=== PATIENT | female | born 1995 | race Caucasian/White ===

== ENCOUNTER 2018-11-17 07:57 | Outpatient (CLI) | payer OTHER ==
--- NOTE | 2018-11-17 09:30 | ULT ---
LIMITED RIGHT BREAST ULTRASOUND: DATE: 11/17/2018. PROVIDED CLINICAL HISTORY: Right breast pain. FINDINGS: Limited sonographic interrogation of the right breast was performed from the 6 to 9 to 12 o'clock pos itions in th region of patient pain. The sonographic appearance of the interrogated breast parenchym a is normal. IMPRESSION: No sonographic abnormality to explain the patient's breast pain. Negative imaging findings should no t preclude further evaluation of the clinically suspicious area. The patient is referred back to her clinician. POS: [facility]
== END 2018-11-17 07:58 | disposition home or self-care (01) ==
LOC: BICULT 07:57
PROVIDERS: ATTEND Nurse Practitioner Family
DX: N64.4 Mastodynia (principal)

== ENCOUNTER 2020-01-28 20:13 | Emergency (ER) | payer OTHER ==
[2020-01-28] MEDS ORDERED: diphenhydrAMINE 50 MG/ML VIAL ONE (20:34)
[2020-01-28] MEDS ORDERED: Metoclopramide HCl 10 MG/2 ML VIAL ONE (20:34)
[2020-01-28 20:44] LABS: #Basophils 0.1 thou/uL (0.0-0.2); #Eosinphils 0.2 thou/uL (0.0-0.7); #Lymphocytes 3.7 thou/uL (1.20-3.40); #Monocytes 0.5 thou/uL (0.11-0.59); #Neutrophils 5.4 thou/uL (1.40-6.50); %Basophils 0.8 % (0.0-1.0); %Eosinophils 1.7 % (0.0-10.0); %Lymphocytes 37.9 % (21.0-51.0); %Monocytes 4.6 % (0.0-10.0); Hemoglobin 15.7 g/dL (12.0-16.0); Mean Corpuscular HGB CONC 35.7 g/dL (32.0-36.0); Mean Corpuscular Hemoglobin 32.1 pg (27.0-31.0); Mean Corpuscular Volume 89.9 fL (78.0-98.0); Mean Platelet Volume 7.7 fL (7.4-10.4); Platelet Count 286 thou/uL (130-400); RBC Distribution Width 10.8 % (11.5-14.5); Red Blood Cell (RBC) Count 4.88 mill/uL (4.20-5.40); White Blood Cell (WBC) Count 9.8 thou/uL (4.8-10.8)
[2020-01-28 21:17] LABS: BHCG - Serum Negative (NEGATIVE); Pregs Control Background? CLEAR/WHITE (CLR/WHITE); Pregs Control Bar Appear? YES (CONTROL BAR)
[2020-01-28] MEDS ORDERED: Ketorolac Tromethamine 30 MG/ML VIAL ONE (21:23)
[2020-01-28] MEDS ORDERED: Magnesium 2 GM/50 ML BAG (IN WATER) ONE (21:23)
[2020-01-28 21:26] LABS: ALT (SGPT) 17 U/L (8-55); AST (SGOT) 22 U/L (5-34); Albumin 4.9 g/dL (3.5-5.0); Alkaline Phosphatase 65 U/L (40-110); Anion Gap 15 mmol/L (10-20); BUN (Urea Nitrogen) 14 mg/dL (7.0-18.7); Bilirubin, Total 0.3 mg/dL (0.2-1.2); Calc. Creatinine Clearance 0 mL/min (70-130); Carbon Dioxide 24 mmol/L (22-29); Chloride 104 mmol/L (98-107); Estimated GFR-MDRD 73; Globulin 3.1 g/dL (2.4-3.5); Glucose 90 mg/dL (70-105); Potassium 3.5 mmol/L (3.5-5.1); Sodium 139 mmol/L (136-145)
[2020-01-28] MEDS ORDERED: Valproate Sodium 500 MG in Sodium Chloride 0.9% 100 ML IVPB SCH (21:30)
[2020-01-29] MEDS ORDERED: Dexamethasone 10 MG/ML VIAL ONE (00:28)
== END 2020-01-29 01:12 | disposition home or self-care (01) ==
LOC: ERS 20:13
DX: G43.909 Migraine, unspecified, not intractable, without status migrainosus (principal)
CPT/HCPCS: 80053; 84703; 85025; 96365; 96367; 96375; J1100; J1200; J1885; J2765; J3475; J3490

== ENCOUNTER 2020-11-22 20:04 | Emergency (ER) | payer BC, OTHER ==
[2020-11-22 20:42] LABS: #Basophils 0.2 thou/uL (0.0-0.2); #Eosinphils 0.2 thou/uL (0.0-0.7); #Lymphocytes 4.2 thou/uL (1.20-3.40); #Monocytes 0.7 thou/uL (0.11-0.59); #Neutrophils 5.4 thou/uL (1.40-6.50); %Basophils 1.6 % (0.0-1.0); %Eosinophils 1.6 % (0.0-10.0); %Lymphocytes 39.6 % (21.0-51.0); %Monocytes 6.4 % (0.0-10.0); %Neutrophils 50.9 % (42.0-75.0); Hemoglobin 14.2 g/dL (12.0-16.0); Mean Corpuscular Hemoglobin 30.8 pg (27.0-31.0); Mean Corpuscular Volume 90.7 fL (78.0-98.0); Mean Platelet Volume 7.4 fL (7.4-10.4); Platelet Count 294 thou/uL (130-400); RBC Distribution Width 10.8 % (11.5-14.5); Red Blood Cell (RBC) Count 4.61 mill/uL (4.20-5.40); White Blood Cell (WBC) Count 10.6 thou/uL (4.8-10.8)
[2020-11-22] MEDS ORDERED: Naloxone HCl 2 MG, Admixture Fee 1 EACH in Sodium Chloride 0.9% 500 ML IV PRN (20:45)
[2020-11-22] MEDS ORDERED: Naloxone HCl 0.4 mg/ml Vial ONE (21:00)
[2020-11-22 21:07] LABS: Acetaminophen Less than 6.0 mcg/mL (10.0-30.0); Alcohol Less than 10 mg/dL (Less than 10); Salicylate Less than 8.0 mg/dL (15.0-30.0)
[2020-11-22 21:09] LABS: ALT (SGPT) 16 U/L (8-55); AST (SGOT) 20 U/L (5-34); Albumin 4.4 g/dL (3.5-5.0); Alkaline Phosphatase 61 U/L (40-110); Anion Gap 13 mmol/L (10-20); BUN (Urea Nitrogen) 14 mg/dL (7.0-18.7); Bilirubin, Total 0.2 mg/dL (0.2-1.2); CK (CPK) 160 U/L (29-168); Calc. Creatinine Clearance 0 mL/min (70-130); Calcium 8.6 mg/dL (7.8-10.44); Carbon Dioxide 24 mmol/L (22-29); Chloride 105 mmol/L (98-107); Globulin 2.8 g/dL (2.4-3.5); Glucose 89 mg/dL (70-105); Potassium 3.3 mmol/L (3.5-5.1); Protein, Total 7.2 g/dL (6.0-8.3); Sodium 139 mmol/L (136-145)
[2020-11-22] MEDS ORDERED: Ondansetron PF 4 MG/2 ML Vial ONE (21:58)
[2020-11-22 22:13] LABS: Bilirubin Negative (Negative); Blood, Urine Negative (Negative); Clarity Clear (Clear); Glucose, Urine (Dipstick) Normal (Negative); Ketone, Urine Negative (Negative); Leukocyte Negative Leu/uL (Negative); Nitrite Negative (Negative); Protein, Urine (Dipstick) Negative (Neg-Trace); Specific Gravity, Urine 1.029 (1.002-1.036); Urobilinogen Normal mg/dL (Less than 2)
[2020-11-22 22:18] LABS: Pregnancy Test - Urine (BHCG) Negative (Negative); Pregu Control Background? CLEAR/WHITE (CLR/WHITE); Pregu Control Bar Appear? YES (CONTROL BAR); Specific Gravity 1.029 (1.002-1.036)
[2020-11-22 22:50] LABS: Amphetamine Not Detected (NotDetected); Barbiturates Screen Not Detected (NotDetected); Benzodiazepine Screen Not Detected (NotDetected); Cocaine Metabolite Screen Not Detected (NotDetected); Medtox Control Line Valid? VALID (VALID); Medtox Reader # READER 1; Methadone Not Detected (NotDetected); Methamphetamine Not Detected (NotDetected); Opiate Screen Not Detected (NotDetected); Oxycodone Screen Not Detected (NotDetected); Phencyclidine (PCP) Not Detected (NotDetected); THC/Cannabinoid Screen Detected (NotDetected); Tricyclic Screen Not Detected (NotDetected)
[2020-11-23] MEDS ORDERED: Ondansetron ODT 8 MG TAB ONE (00:51)
== END 2020-11-23 00:57 ==
LOC: ERS 20:04 → EEVIPCON 20:04 → ERS 11-23 00:57
DX: R45.851 Suicidal ideations (principal); F12.90 Cannabis use, unspecified, uncomplicated
CPT/HCPCS: 36415; 51701; 80053; 80306; 80307; 81003; 81025; 82550; 84443; 85025; 93005; 96374; J2310; J2405; J7030; Q0162